=== PATIENT | female | born 1960 | race Caucasian/White ===

== ENCOUNTER 2017-06-14 11:41 | Emergency (ER) | payer OTHER ==
--- NOTE | 2017-06-14 11:57 | EDPHY ---
H & P Time Seen by Provider: 06/14/17 11:41 HPI/ROS: Chief complaint. Numbness, altered mental status HPI. 57-year-old female here by EMS. Apparently she went to urgent care with complaint of numbness to both arms and both legs. She then apparently became unresponsive and was not speaking. Per EMS she had stable vital signs. Blood sugar was 102. EKG showed sinus rhythm. The patient became unresponsive for the EMS however vital signs did not change and there were no arrhythmia is. The patient arrives not speaking. Subsequently she says that her legs are numb. She also asked me if her is here. However further questioning and review of systems the patient does not speak but just stairs. She is clearly awake and can see me and hear me but is not responding. Unknown whether this has occurred before not. ROS --unable Past Medical/Surgical History: Unknown. No old records in our computer system Social History: but is not here Smoking Status: Never smoked Physical Exam: General Appearance: Alert well-developed female mild distress vitals are stable Eyes: Pupils equal and round no pallor or injection. ENT, Mouth: Mucous membranes are moist. Respiratory: There are no retractions, lungs are clear to auscultation. Cardiovascular: Regular rate and rhythm. Gastrointestinal: Abdomen is soft and nontender, no masses, bowel sounds normal. Neurological: Awake but not responding. Appears she has movement in all 4 extremities. Tells me that she has numb legs Skin: Warm and dry, no rashes. Musculoskeletal: Neck is supple nontender. Extremities symmetrical, full range of motion. Psychiatric: Patient does answer direct questions. Unclear whether she is oriented though it would appear she is. Constitutional: Initial Vital Signs Temperature (C) 37 C 06/14/17 11:48 Heart Rate 84 06/14/17 11:48 Respiratory Rate 18 06/14/17 11:48 Blood Pressure 148/91 H 06/14/17 11:48 O2 Sat (%) 97 06/14/17 11:48 O2 Delivery Mode Room Air Allergies/Adverse Reactions: codeine Allergy (Verified 06/14/17 13:24) Home Medications: Medication Instructions Recorded Unobtainable 06/14/17 Medical Decision Making - Diagnostics EKG Interpretation: EKG interpreted by me shows normal sinus rhythm with normal interval. Left axis deviation. QRS is normal there is no significant ST elevation or depression. There is no arrhythmia. The rate is 77 Imaging Results: Imaging Impressions Chest X-Ray 06/14/17 12:00 Impression: Mild peribronchial thickening, which could be related to airways disease. Head CT 06/14/17 12:00 Impression: There is no acute intracranial abnormality identified on this unenhanced CT evaluation. If there is further clinical concern regarding the patient's symptoms, MR imaging is suggested, if not otherwise contraindicated. Findings were discussed with BERNARD SANDRA MD at 12:35, on 06/14/2017. Head CT reviewed by me and discussed with Dr. Garcia is normal Chest x-ray shows no evidence for pneumonia Procedures: IV normal saline, monitor ED Course/Re-evaluation: 12:40 p.m. arrives. He says the patient has been feeling well the last couple days. She has been able to ambulate. He knew she was going to urgent care today for leg numbness. He does not think drugs or alcohol are involved. He tells me that the patient has a history of MS but has not been taking any medication for some period time. No recent head injury At this time the patient is somewhat more conversational and interactive but still has episodes where she stares but does not respond to direct questioning. She tells me that she thinks she can walk At 1:00 p.m. Nurse tells me that the patient has been ambulatory to the bathroom. She was conversational in the bathroom. Re-evaluation 1:15 p.m.--now patient has complaint of left-sided headache or nausea vomiting. Patient will be given IV Reglan, Benadryl, Toradol. She tells me she is allergic to codeine only Recheck again at 1:35 p.m.. Patient is stable. Her headache is improved and she has no nausea or vomiting Re-evaluation 2:35 p.m.. Patient is completely normal. She tells me she feels well to go home. She is here with her who will bring her home. Patient and family and I discussed imaging and lab results. We discussed treatment plan including criteria for return and importance of follow-up and further evaluation. They expressed understanding and agreement Differential Diagnosis: I considered CVA, intracranial bleeding. I believe the patient now maybe has had a migraine as she has had good relief from migraine cocktail for one-sided headache and nausea vomiting as well as some photophobia. She is completely interactive and neurologically intact now. - Data Points Laboratory Results: Laboratory Results 06/14/17 11:52 06/14/17 11:52 06/14/17 06/14/17 06/14/17 11:53 11:52 11:52 WBC RBC Hgb POC Hgb 15.3 gm/dL gm/dL (12.6-16.3) Hct POC Hct 45 % % (38-47) MCV MCH MCHC RDW Plt Count MPV Neut % (Auto) Lymph % (Auto) [place] % (Auto) Eos % (Auto) Baso % (Auto) Nucleat RBC Rel Count Absolute Neuts (auto) Absolute Lymphs (auto) Absolute Monos (auto) Absolute Eos (auto) Absolute Basos (auto) Absolute Nucleated RBC Immature Gran % Immature Gran # PT 12.0 SEC SEC (12.0-15.0) INR 0.87 (0.83-1.16) POC Sodium 140 mEq/L mEq/L (135-145) Sodium 140 mEq/L mEq/L (135-145) POC Potassium 3.4 mEq/L mEq/L (3.3-5.0) Potassium 3.7 mEq/L mEq/L (3.5-5.2) POC Chloride 105 mEq/L mEq/L (97-110) Chloride 106 mEq/L mEq/L (97-110) Carbon Dioxide 20 mEq/l L mEq/l (22-31) Anion Gap 14 mEq/L mEq/L (8-16) POC BUN 19 mg/dL mg/dL (7-23) BUN 19 mg/dL mg/dL (7-23) Creatinine 0.9 mg/dL mg/dL (0.6-1.0) POC Creatinine 0.9 mg/dL mg/dL (0.6-1.0) Estimated GFR > 60 Glucose 111 mg/dL H mg/dL (70-100) POC Glucose 120 mg/dL H mg/dL (70-100) Calcium 9.7 mg/dL mg/dL (8.5-10.4) Ethyl Alcohol < 10 mg/dL mg/dL (0-10) 06/14/17 11:52 WBC 5.02 10^3/uL 10^3/uL (3.80-9.50) RBC 5.03 10^6/uL 10^6/uL (4.18-5.33) Hgb 15.0 g/dL g/dL (12.6-16.3) POC Hgb Hct 44.2 % % (38.0-47.0) POC Hct MCV 87.9 fL fL (81.5-99.8) MCH 29.8 pg pg (27.9-34.1) MCHC 33.9 g/dL g/dL (32.4-36.7) RDW 13.9 % % (11.5-15.2) Plt Count 153 10^3/uL 10^3/uL (150-400) MPV 11.8 fL H fL (8.7-11.7) Neut % (Auto) 59.7 % % (39.3-74.2) Lymph % (Auto) 31.1 % % (15.0-45.0) [place] % (Auto) 7.0 % % (4.5-13.0) Eos % (Auto) 1.2 % % (0.6-7.6) Baso % (Auto) 0.8 % % (0.3-1.7) Nucleat RBC Rel Count 0.0 % % (0.0-0.2) Absolute Neuts (auto) 3.00 10^3/uL 10^3/uL (1.70-6.50) Absolute Lymphs (auto) 1.56 10^3/uL 10^3/uL (1.00-3.00) Absolute Monos (auto) 0.35 10^3/uL 10^3/uL (0.30-0.80) Absolute Eos (auto) 0.06 10^3/uL 10^3/uL (0.03-0.40) Absolute Basos (auto) 0.04 10^3/uL 10^3/uL (0.02-0.10) Absolute Nucleated RBC 0.00 10^3/uL 10^3/uL (0-0.01) Immature Gran % 0.2 % % (0.0-1.1) Immature Gran # 0.01 10^3/uL 10^3/uL (0.00-0.10) PT INR POC Sodium Sodium POC Potassium Potassium POC Chloride Chloride Carbon Dioxide Anion Gap POC BUN BUN Creatinine POC Creatinine Estimated GFR Glucose POC Glucose Calcium Ethyl Alcohol Medications Given: Discontinued Medications Diphenhydramine HCl (Benadryl Injection) 12.5 mg IVP EDNOW ONE Stop: 06/14/17 13:19 Last Admin: 06/14/17 13:27 Dose: 12.5 mg Sodium Chloride (Ns) 1,000 mls @ 0 mls/hr IV ONCE ONE; Wide Open PRN Reason: Protocol Stop: 06/14/17 12:01 Last Admin: 06/14/17 12:11 Dose: 1,000 mls Sodium Chloride (Ns) 1,000 mls @ 0 mls/hr IV ONCE ONE; Wide Open PRN Reason: Protocol Stop: 06/14/17 13:19 Last Admin: 06/14/17 13:29 Dose: 1,000 mls Ketorolac Tromethamine (Toradol) 30 mg IVP EDNOW ONE Stop: 06/14/17 13:19 Last Admin: 06/14/17 13:30 Dose: 30 mg Metoclopramide HCl (Reglan Injection) 10 mg IVP EDNOW ONE Stop: 06/14/17 13:19 Last Admin: 06/14/17 13:29 Dose: 10 mg Point of Care Test Results: 06/14/17 11:53 POC Sodium 140 POC Potassium 3.4 POC Chloride 105 POC BUN 19 POC Creatinine 0.9 POC Glucose 120 H Departure - Departure Disposition: Home, Routine, Self-Care Clinical Impression: Migraine headache Condition: Good Instructions: Migraine Headache (ED) Additional Instructions: Tylenol 1000 mg every 4-6 hours, ibuprofen 600 mg every 6 hr as needed for continuing headache. Return for worsening symptoms. Re-evaluation by your regular neurologist in 2 days time if not continuing to improve Referrals: Patient,NotPresent [Unknown] - As per Instructions
--- NOTE | 2017-06-14 11:58 | CPEKG ---
Heart Rate: 77 RR Interval: 779 P-R Interval: 140 QRSD Interval: 88 QT Interval: 416 QTC Interval: 471 P [place]: 60 QRS [place]: 27 T Wave [place]: 37 EKG Severity - NORMAL ECG - EKG Impression: SINUS RHYTHM Electronically Signed By: Raymundo Moran 14-Jun-2017 13:46:02
[2017-06-14] MEDS ORDERED: NS 1,000 ML IV ONE ×2 (12:00→13:18)
[2017-06-14 12:11] LABS: PLATELET COUNT 153 10^3/uL (150-400)
[2017-06-14 12:20] LABS: INR 0.87 (0.83-1.16)
[2017-06-14] MEDS ORDERED: METOCLOPRAMIDE 10 MG/2 ML VIAL IVP ONE (13:18)
[2017-06-14] MEDS ORDERED: KETOROLAC 30 MG/1 ML SDV IVP ONE (13:18)
[2017-06-14 15:09] VITALS: BP 122/65
== END 2017-06-14 15:09 | disposition home or self-care (01) ==
DX: G43.909 Migraine, unspecified, not intractable, without status migrainosus (principal); E86.9 Volume depletion, unspecified
CPT/HCPCS: 82947-QW; 96374; G0480; J1200; J1885; J2765